=== PATIENT | female | born 1960 | race Caucasian/White ===

== ENCOUNTER 2021-01-13 00:13 | Emergency (ER) | payer BC, SELFPAY ==
[2021-01-13] VITALS (7 sets, daily range): BP systolic 95–111; BP diastolic 49–65; PULSE 74–100; RESP 16–18; TEMP 36.3–36.6; O2SAT 97–100
--- NOTE | ~2021-01-13 | XR_ITS ---
EXAMINATION: XR chest 1V portable EXAM DATE: 01/13/2021 04:03 INDICATION: Fever. TECHNIQUE: Portable AP frontal chest x-ray was obtained. Comparison is made to prior examination from 06/18/2016. FINDINGS: Right basilar nodular density likely patient's nipple. Upper thoracic posterior fusion hard pedro compared to prior study. Mild to moderate hyperinflation. The lungs are clear. There are no ple ural effusions. The cardiomediastinal silhouette is within normal limits. There is no pneumothorax suspected. The bones and soft tissues are unremarkable. IMPRESSION: 1. No acute cardiopulmonary findings. 2. Hyperinflation. Reviewed, dictated and finalized at location A.
[2021-01-13 03:55] LABS: Basophils Percent Auto 0.7 % (0.2-1.2); Eosinophils Absolute Auto 0.1 K/mm3 (0-0.3); Eosinophils Percent Auto 1.5 % (0-4.4); Hematocrit 37.4 % (37.0-47.0); Hemoglobin 12.5 g/dL (12.0-15.0); Immature Granulocyte Absolute 0.01 K/mm3 (0.00-0.031); Immature Granulocyte Percent A 0.2 % (0-0.5); Lymphocytes Absolute Auto 2.17 K/mm3 (0.9-3.2); Lymphocytes Percent Auto 54.1 % (18.3-44.2); Mean Corpuscular HGB Conc 33.4 g/dl (32-36); Mean Corpuscular Hemoglobin 30.6 pg (26-34); Mean Corpuscular Volume 91.4 fl (80-100); Mean Platelet Volume 10.9 fl (7.4-10.4); Monocytes Absolute Auto 0.3 K/mm3 (0.1-0.6); Monocytes Percent Auto 8.5 % (2.6-8.5); Neutrophils Absolute Auto 1.4 K/mm3 (1.3-6.7); Platelet Count Result 145 k/mm3 (150-375); Red Blood Count 4.09 M/mm3 (4.2-5.4); Red Cell Distribution Width 11.7 % (11.5-14.5)
--- NOTE | 2021-01-13 03:59 | PC.NURSE ---
XY to room at this time.
[2021-01-13 04:05] LABS: Alanine Aminotransferase 339 U/L (4-35); Albumin Level 3.9 g/dL (3.5-5.1); Alkaline Phosphatase 300 U/L (38-126); Anion Gap 8 mmol/L (8-16); Aspartate Amino Transferase 173 U/L (14-36); Bilirubin,Total 0.4 mg/dL (0.2-1.3); Blood Urea Nitrogen 16 mg/dL (7-17); Calcium 8.7 mg/dL (8.4-10.2); Carbon Dioxide 30 mmol/L (22-30); Chloride 97 mmol/L (98-107); Estimated CRCL calculation 57 ml/min; Estimated Glomerular Filt Rate > 60; Glucose 143 mg/dL (65-105); Magnesium 2.1 mg/dL (1.6-2.3); Potassium 4.4 mmol/L (3.4-5.0); Sodium 135 mmol/L (137-145)
--- NOTE | 2021-01-13 05:48 | ED.URI ---
HPI - URI/Sore Throat General Chief Complaint: Upper Respiratory Infection Stated Complaint: flu sx Time Seen by Provider: 01/13/21 03:17 Source: patient and RN notes reviewed Mode of arrival: ambulatory Limitations: no limitations History of Present Illness HPI Narrative: This is a 60 year old female who presents for evaluation of URI symptoms. Patient reports she developed fever, body aches on Saturday. She was seen by her PCP on Saturday and she had a covid test performed. She states her test was negative. She came in tonight because she started feeling tingling all over. She denies chest pain, cough, sob, vomiting, diarrhea, abdominal pain, dysuria or back pain. She wondered if her electrolytes were abnormal or if she had the flu Related Data Home Medications Medication Instructions Recorded Confirmed lancets #50 each 07/09/19 07/26/20 ropinirole 0.25 mg tablet 0.5 mg PO .hs tablet 07/09/19 07/26/20 Allergies Allergy/AdvReac Type Severity Reaction Status Date / Time oxycodone AdvReac Unknown SEVERE Verified 01/13/21 02:57 NAUSEA/VOMITING Review of Systems Review of Systems: All systems reviewed & are unremarkable except as noted in HPI and below PMFSH Past Medical History Medical History (Updated 01/13/21 @ 06:27 by Irene Jolley MD) Diabetes type 2, controlled Hyperlipidemia Hypothyroidism TONYA (obstructive sleep apnea) Seizure once after child Surgical History Surgical History History of mandibular surgery Family History Family History Mother Hypertension Family history of elevated blood lipids, Onset Age: 80 Family history of arthritis Sibling Patient's sister is in good health Father Family history of elevated blood lipids Social History Social History Smoking status: Never smoker Second hand tobacco smoke exposure: No Alcohol intake: never Exam Const: General: no acute distress and alert Orientation/consciousness: patient oriented x3 HENMT: Head: normocephalic and atraumatic Ears: TM's normal bilaterally Throat: posterior oropharynx normal, tonsils normal, uvula midline and peritonsillar mass Eyes: Conjunctivae: conjunctivae normal Pupils: Equal, round and reactive pupils present EOM: EOMs intact bilaterally Chest: Chest palpation & inspection: normal inspection of the chest Resp: Effort & Inspection: normal respiratory effort and no retractions Auscultation: clear to auscultation bilaterally Cardio: Rate: regular rate Rhythm: regular rhythm Heart sounds: no murmurs GI: GI Palp: Yes Soft to palpation, No Tenderness to palpation present (GI) and No Guarding due to palpation present (GI) Skin: General skin exam: normal color Rashes: no rashes Neuro: General: patient oriented x3, moves all extremities, no focal motor deficits and CN's II-XI intact bilaterally Cranial nerves: Yes Nystagmus not present Speech: normal speech Extrem: General: normal to inspection Psych: Mental Status: mental status grossly normal Affect: normal affect Course Consultations Consultation #1: I spoke with Dr. Lopez patient presented with tingling to extremities and her labs are consistent with likely viral symptoms. I also discussed patient with elevated LFts. He states to have patient call office to arrange for follow up . Date: 01/13/21 Time: 06:26 Vital Signs Vital signs: Vital Signs Temperature 97.3 F L 01/13/21 00:26 Pulse Rate 100 01/13/21 00:26 Respiratory Rate 16 01/13/21 00:26 Blood Pressure 107/49 L 01/13/21 00:26 Pulse Oximetry 100 01/13/21 00:26 Temperature 97.9 F 01/13/21 02:46 Pulse Rate 78 01/13/21 06:11 Respiratory Rate 16 01/13/21 06:11 Blood Pressure 108/65 01/13/21 06:11 Pulse Oximetry 99 01/13/21 06:11 [facility] - URI
[2021-01-13 15:49] LABS: Hepatitis B Surface Antigen Negative (Negative)
[2021-01-13 15:54] LABS: HAV RESULT Negative (Negative); Hepatitis B Core IgM Result Negative (Negative)
[2021-01-13 16:06] LABS: Hepatitis C Virus Antibody Negative (Negative)
== END 2021-01-13 06:37 | disposition home or self-care (01) ==
PROVIDERS: Emergency Provider General Practice; PCP Internal Medicine
DX: B34.9 Viral infection, unspecified (principal); R20.2 Paresthesia of skin; R74.01 Elevation of levels of liver transaminase levels; E11.9 Type 2 diabetes mellitus without complications; E78.5 Hyperlipidemia, unspecified; E03.9 Hypothyroidism, unspecified; G47.33 Obstructive sleep apnea (adult) (pediatric)
CPT/HCPCS: 36415; 71045; 80053; 80074; 83735; 85025; 87804; 99283

== ENCOUNTER 2023-01-18 14:43 | Outpatient (CLI) | payer BC, SELFPAY ==
--- NOTE | 2023-01-18 14:54 | ECHO_ITS ---
Patient Info Name: Marcy Sanchez Age: 62 years : 1960 Gender: Female Ht: 67 in Wt: 130 lbs BSA: 1.67 m2 HR: 65 bpm BP: 108 / 59 mmHg Technical Quality: Fair Exam Date: 01/18/2023 3:19 PM Exam Location: [facility] Pul[facility] Patient Status: Outpatient Admit Date: 01/18/2023 Staff Ordering Physician: Ac Lopez DO Heat Engineering Teacher: Alyssa Castro RDCS Attending Provider: Ac Lopez DO Referring Physician: Jessica SNOW; Exam Type: CA echo doppler color flow Study Info Indications - PALPITATIONS Complete two-dimensional, color flow and Doppler transthoracic echocardiogram is performed. Summary 1. Complete two-dimensional, color flow and Doppler transthoracic echocardiogram is performed. 2. Left ventricular chamber dimension is normal. 3. Left ventricular systolic function is normal, estimated at 55-60%. 4. The left ventricular diastolic function is grade I diastolic dysfunction. 5. E/e' 6 is not elevated. 6. There is trace mitral valve regurgitation. 7. There is trace tricuspid valve regurgitation. 8. No pulmonary hypertension, estimated pulmonary arterial systolic pressure is 30 mmHg. Left Ventricle E/e' 6 is not elevated. Left ventricular chamber dimension is normal. Left ventricular systolic function is normal, estimated at 55-60%. The left ventricular diastolic function is grade I diastolic dysfunction. Right Ventricle Right ventricular chamber dimension is normal. Right ventricular systolic function is normal. Left Atria Left atrial chamber dimension is normal. Right Atria Right atrial chamber dimension is normal. Aortic Valve The aortic valve is trileaflet. There is no aortic valve stenosis. There is no aortic valve regurgitation. Pulmonic Valve There is no pulmonic regurgitation. Mitral Valve There is no mitral valve stenosis. There is trace mitral valve regurgitation. Tricuspid Valve There is trace tricuspid valve regurgitation. No pulmonary hypertension, estimated pulmonary arterial systolic pressure is 30 mmHg. Pericardium/Pleural There is no pericardial effusion. Inferior Vena Cava Normal inferior vena cava with >50% collapse upon inspiration consistent with normal right atrial pressure, 5 mmHg. Aorta The aortic root size at the sinus of Valsalva is normal. Left Ventricular Outflow Tract Name Value Normal LVOT 2D LVOT Diameter 2.0 cm LVOT Doppler LVOT Peak Velocity 108 cm/s LVOT Peak Gradient 5 mmHg LVOT Mean Gradient 3 mmHg LVOT VTI 21 cm LVOT VTI/AV VTI Ratio 1.0 LVOT Stroke Volume 64 ml LVOT CO 14.0 l/min LVOT CI 8.4 l/min/m2 Pulmonic Valve Name Value Normal PV Doppler PV Peak Velocity 80 cm/s PV Peak Gradient
--- NOTE | 2023-01-22 16:09 | WPDHOLTEREM ---
Holter/Event Monitor Holter/Event Monitor Date of procedure: 01/18/23 Holter/Event Procedure: 48 Hr Holter Monitor Indications: Palpitations Conclusion: 1. 48 hour holter monitor on 01/18/23. 2. Underlying rhythm is sinus rhythm with sinus arrhythmia. HR range 56-132 bpm; average HR 79 bpm. 3. There are 7 premature supraventricular complexes and 1 supraventricular couplet. No supraventricular tachycardia. 4. There are 2 premature ventricular complexes. No ventricular tachycardia. 5. No sinoatrial or atrioventricular blocks. No significant pauses greater than 2 seconds. 6. No symptoms available for correlation.
== END 2023-01-18 14:44 | disposition home or self-care (01) ==
PROVIDERS: PCP Internal Medicine; Visit Provider Internal Medicine
DX: R00.2 Palpitations (principal); R53.83 Other fatigue
CPT/HCPCS: 93225; 93226; 93306

== ENCOUNTER 2023-04-15 12:18 | Outpatient (CLI) | payer BC, SELFPAY ==
--- NOTE | ~2023-04-15 | XR_ITS ---
Left Hand Technique: PA, oblique, and lateral views were obtained. Clinical History: Pain Findings: No acute fracture or dislocation is seen. Osseous alignment is anatomic. There is mild dege nerative change of the third DIP joint. Soft tissues are unremarkable. 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 Reviewed, dictated and finalized at location . 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
== END 2023-04-15 12:19 | disposition home or self-care (01) ==
PROVIDERS: PCP Internal Medicine; Visit Provider Internal Medicine
DX: M79.642 Pain in left hand (principal)
CPT/HCPCS: 73130

== ENCOUNTER 2023-11-19 09:47 | Outpatient (RCR) | payer BC, SELFPAY ==
--- NOTE | 2023-11-19 10:36 | OPREHPOC ---
Outpatient Therapy Plan of Care This is a Multidisciplinary Plan of Care that may contain components documented by all disciplines (PT, OT, and ST.) PT Problem 1 PT Problem #1 Knowledge Deficit PT Goal 1 Goal 1. Patient will perform independent HEP 2. Patient will verbalize urge suppression techniques Target Visit 3 PT Problem 2 PT Problem #2 Impaired Strength PT Goal 1 Goal 1. Improve pelvic floor strength to 4/5 to decrease voiding at night 2. Improve pelvic floor endurance to 10 seconds PT Problem 3 PT Problem #3 Impaired Functional ADLs PT Goal 1 Goal 1. Patient will wake no more than 1 time to void at night Target Visit 5
--- NOTE | 2023-11-19 10:36 | PTOPEVAL1 ---
Assessment and note entered by Guerline Gonsalves DPT Evaluation Information Assessment Status Evaluation Subjective Information Pt reports as she has aged she feels like her urine stream has gotten slower. Over the last 6 months also notes she is getting up a lot to void over the night. Also struggles with insomnia and takes a sleeping pills, sleep apnea and has inspire implant. Voids 3-4 times at night, small amounts each time. Voids 6-7 times a day. Can hold urge to void as long as needed during the day. Denies urine leakage or pain with urination. BM daily and without pain. Denies history of pelvic pain other than mild pain with sex from menopause. Pt states her frequent urination at night really interferes with her sleep and feels very frustrated. Has to pause her inspire implant every time she wakes up to void. Feels more tired during the day. 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 Recently started taking medicine for OAB. Patient goal: only get up once at night Returns to MD in 6 months. Reported Pain Level Pain Score 0: Self Report Assessment PT Clinical Summary The patient is presenting to skilled therapy with a diagnosis of OAB and reports frequent voiding at night. She presents with decreased core strength and decreased pelvic floor strength and endurance which are contributing to her symptoms. She will benefit from therapy to address these impairments in order to reduce nocturia and return to full function. Plan of Care Interventions Manual Therapy,Neuro Re-education,Patient/ Caregiver Education,Therapeutic Activities, Therapeutic Exercise PT Services Indicated Yes Treatment Frequency and 1 time a week for 5 visits Duration These treatments will address the objective and functional deficits as defined above. The patient will be advanced safely and appropriately in order for the patient to progress towards his/her prior level of function. Additional exercises will be introduced and as well as a comprehensive home exercise program upon discharge, if needed, ?to ensure carryover of functional gains achieved in the clinic. This treatment plan has been reviewed and agreement upon by the patient.
--- NOTE | 2023-12-12 14:51 | PCPTNOTE ---
Patient called to cancel appointment on 12/12/23.
--- NOTE | 2023-12-20 11:57 | PCPTNOTE ---
Patient called to cancel appointment on 12/20/23. Unknown specifics.
--- NOTE | 2024-01-23 11:55 | PTOPDC ---
Assessment and note entered by Guerline Gonsalves DPT Evaluation Information Assessment Status Discharge - Pt Not Present Subjective Information - Assessment PT Clinical Summary Patient has not attended therapy since evaluation 11/19/23. She will be discharged this date. Plan of Care PT Services Indicated No
== END 2024-01-23 14:23 | disposition home or self-care (01) ==
LOC: ANHPT 09:47
PROVIDERS: PCP Internal Medicine; Visit Provider Internal Medicine
DX: N32.81 Overactive bladder (principal)
CPT/HCPCS: 97161; 97530